=== PATIENT | female | born 1955 | race Caucasian/White ===

== ENCOUNTER → 2021-12-19 | Outpatient (CLI) | payer OTHER ==
[2021-12-19 13:11] LABS: CALCIUM LEVEL 9.6 MG/DL (8.8-10.2); CREATININE FOR GFR 1.2 MG/DL (0.55-1.30); GLOMERULAR FILTRATION RATE 47.8 (>45); POTASSIUM SERUM 4.2 MEQ/L (3.5-5.1)
== END ==
LOC: M WUC 10:44
PROVIDERS: ATTEND Physician Assistant Surgical
DX: N17.9 Acute kidney failure, unspecified (principal)

== ENCOUNTER 2022-11-14 18:41 | Emergency (ER) | payer MEDICARE, OTHER ==
[~2022-11-14] VITALS: Ht 167.6 cm; Wt 90.9 kg
[2022-11-14] MEDS ORDERED: ACETAMINOPHEN 1000MG 100ML IV BAG IV ONE (19:05)
[2022-11-14] MEDS ORDERED: CARVedilol 12.5 MG TAB PO ONE (19:15)
[2022-11-14] MEDS ORDERED: MORPHINE 2 MG/ML 1ML VIAL IV ONE (19:30)
[2022-11-14] MEDS ORDERED: ATOR40TA75 PO (20:27)
[2022-11-14] MEDS ORDERED: OXYCODONE/APAP 5MG/325MG(HOME DOSE PACK) PO ONE (20:40)
[2022-11-14] MEDS ORDERED: PERCOCET 5MG/325MG TAB PO ONE (20:40)
[2022-11-14] MEDS ORDERED: PERC5TAB12 PO (21:09)
[2022-11-14] MEDS ORDERED: ONDA4TAB6 PO (21:09)
[2022-11-14] MEDS ORDERED: ONDANSETRON 4MG ORAL DISINTEGRATING TAB PO ONE (21:15)
[2022-11-14 21:24] VITALS: BP 168/78; TEMP 97.8; O2SAT 96
== END 2022-11-14 21:28 | disposition home or self-care (01) ==
LOC: EDBD 18:41 → M ED 18:41
DX: S42.291A Other displaced fracture of upper end of right humerus, initial encounter for closed fracture (principal); S62.316A Displaced fracture of base of fifth metacarpal bone, right hand, initial encounter for closed fracture; V00.841A Fall from standing electric scooter, initial encounter; Y92.410 Unspecified street and highway as the place of occurrence of the external cause; I10 Essential (primary) hypertension; I25.10 Atherosclerotic heart disease of native coronary artery without angina pectoris; I25.2 Old myocardial infarction; E11.9 Type 2 diabetes mellitus without complications; E78.5 Hyperlipidemia, unspecified; Z79.4 Long term (current) use of insulin; Z79.899 Other long term (current) drug therapy; Z91.89 Other specified personal risk factors, not elsewhere classified
CPT/HCPCS: 70450; 72125; 73030; 73080; 73110; 96374; 96375; 99284; J0131

== ENCOUNTER → 2022-11-15 | Outpatient (CLI) | payer MEDICARE ==
[~2022-11-15] MED LIST: ATOR40TA75 PO; ONDA4TAB6 PO; PERC5TAB12 PO
== END ==
LOC: M SOG 15:12
PROVIDERS: ATTEND Orthopaedic Surgery
DX: S42.201A Unspecified fracture of upper end of right humerus, initial encounter for closed fracture (principal); X58.XXXS Exposure to other specified factors, sequela; Y92.9 Unspecified place or not applicable; Y93.9 Activity, unspecified; Y99.9 Unspecified external cause status

== ENCOUNTER → 2022-12-03 | Outpatient (CLI) | payer MEDICARE | LOC: M SOG 07:58 | PROVIDERS: ATTEND Orthopaedic Surgery | DX: S42.291A Other displaced fracture of upper end of right humerus, initial encounter for closed fracture (principal); X58.XXXA Exposure to other specified factors, initial encounter; Y92.9 Unspecified place or not applicable; Y93.9 Activity, unspecified; Y99.9 Unspecified external cause status ==

== ENCOUNTER → 2022-12-24 | Outpatient (CLI) | payer MEDICARE | LOC: M SOG 08:00 | PROVIDERS: ATTEND Orthopaedic Surgery | DX: S42.291D Other displaced fracture of upper end of right humerus, subsequent encounter for fracture with routine healing (principal) ==

== ENCOUNTER → 2023-01-23 | Outpatient (CLI) | payer MEDICARE | LOC: M SOG 08:55 | PROVIDERS: ATTEND Orthopaedic Surgery | DX: S42.291D Other displaced fracture of upper end of right humerus, subsequent encounter for fracture with routine healing (principal) ==